=== PATIENT | female | born 1990 ===

== ENCOUNTER 2023-06-20 19:09 | Emergency (ER) | payer MEDICAID, SELFPAY ==
[2023-06-20] VITALS (9 sets, daily range): BP systolic 121–122; BP diastolic 71–76; PULSE 76–111; RESP 16–26; TEMP 36.8; O2SAT 100; BMI 31.1
--- NOTE | 2023-06-20 19:43 | XR_ITS ---
The [address] [address] Patient Name: GLENN JEROME MRN: [id number] date: 1990 Sex: F Assigned Patient Location: ER Current Patient Location: ER Accession/Order Number: [id number] Exam Date: 06/20/2023 20:30 Report Date: 06/20/2023 20:52 At the request of: DIANE MARKER Procedure: XR chest 1V EXAMINATION: XR chest 1V HISTORY: Chest pain COMPARISON: None. TECHNIQUE: Portable chest FINDINGS: The lung parenchyma is free of consolidation or infiltrate. No pneumothorax or pleural effusion. The cardiac, mediastinal and hilar contours are normal. The visualized osseous structures exhibit no gross abnormality. XR/XR chest 1V IMPRESSION: No acute cardiopulmonary abnormality. Electronically authenticated by: MARTIN PEÑA Date: 06/20/2023 20:52
--- NOTE | 2023-06-20 19:43 | ECG_ITS ---
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
--- NOTE | 2023-06-20 20:45 | ED_ITS ---
Documented by User: KRISTAN Andrea 06/20/23 21:41 HPI - Chest Pain General Chief Complaint: Chest Pain Time Seen by Provider: 06/20/23 19:53 Source: patient Mode of arrival: walk-in Limitations: no limitations History of Present Illness HPI narrative: Patient is a 33-year-old female who presents to the emergency department for the evaluation of left-sided chest pain ongoing intermittently for the last several months. She states today she felt nauseous which prompted her to come to the ER. She does have occasional shortness of breath. She has had no fevers, chills. No vomiting or diarrhea. She reports decreased oral intake today. She is not concerned for . No medications taken prior to arrival. Related Data Previous Rx's Medication Instructions Recorded hydroxyzine pamoate 25 mg capsule 25 mg PO Q6H PRN anxiety #20 caps 06/20/23 (Vistaril) ondansetron 4 mg disintegrating 4 mg PO Q6H PRN nausea and 06/20/23 tablet vomiting #12 tabs Allergies Allergy/AdvReac Type Severity Reaction Status Date / Time No Known Drug Allergies Allergy Verified 06/20/23 19:36 Review of Systems ROS Constitutional Denies: fever or chills Ears, nose, mouth, and throat Denies: throat pain or nasal congestion Cardiovascular Reports: chest pain Respiratory Reports: shortness of breath; Denies: cough Gastrointestinal Reports: nausea; Denies: vomiting Musculoskeletal Denies: back pain Integumentary/Breast Denies: rash Neurological Denies: headache Endocrine Denies: excessive urination Exam Narrative Exam Narrative: Gen.: Awake, alert, in no distress Head: Normocephalic, atraumatic ENT: Moist mucous membranes Respiratory: No respiratory distress, lungs clear bilaterally Cardio: Regular rate and rhythm Gastrointestinal: Abdomen is soft, nondistended and nontender to palpation Extremities: Moves extremities equally Psych: Normal mood and affect Neuro: No focal neuro deficit Skin: Warm, dry, intact Constitutional Vital Signs, click to edit/add: Last Vital Signs Temp 98.3 F 06/20/23 19:32 Pulse 81 06/20/23 21:51 Resp 17 06/20/23 21:51 BP 121/71 06/20/23 21:51 Pulse Ox 100 06/20/23 21:51 O2 Del Method Room Air 06/20/23 21:51 Course Vital Signs Vital signs: Vital Signs Temperature 98.3 F 06/20/23 19:32 Pulse Rate 111 H 06/20/23 19:32 Respiratory Rate 18 06/20/23 19:32 Blood Pressure 122/76 06/20/23 19:32 Pulse Oximetry 100 06/20/23 19:32 Oxygen Delivery Method Room Air 06/20/23 19:32 Temperature 98.3 F 06/20/23 19:32 Pulse Rate 81 06/20/23 21:51 Respiratory Rate 17 06/20/23 21:51 Blood Pressure 121/71 06/20/23 21:51 Pulse Oximetry 100 06/20/23 21:51 Oxygen Delivery Method Room Air 06/20/23 21:51 MDM - Chest Pain MDM Narrative Medical decision making narrative: EKG, chest x-ray performed and laboratory studies including troponin and D-dimer are within normal limits. Patient has had ongoing symptoms for several months, she has normal oxygenation and appears well-hydrated and nontoxic. She is discharged home to follow-up with her PCP for further testing. Return to the emergency department if symptoms change or worsen. Medical Records Data Attestation: I reviewed the patient's medical records. Lab Data Attestation: I reviewed the patient's lab results. Labs: Lab Results 06/20/23 Range/Units 20:20 WBC 8.6 (4.0-11.0) 10^3/uL RBC 4.33 (4.20-5.40) 10^6/uL Hgb 13.2 (12.0-16.0) g/dL Hct 40.0 (36.0-48.0) % MCV 92.4 (81.0-99.0) fL MCH 30.5 (26.7-34.0) pg MCHC 33.0 (29.9-35.2) g/dL RDW 12.3 (11.0-15.0) % Plt Count 314 (150-450) 10^3/uL MPV 8.9 L (9.5-13.5) fL Neut % (Auto) 65.7 (43.0-75.0) % Lymph % (Auto) 25.4 (20.5-60.0) % Jones % (Auto) 8.4 (1.7-12.0) % Eos % (Auto) 0.0 L (0.9-7.0) % Baso % (Auto) 0.2 (0.2-2.0) % Neut # (Auto) 5.6 (1.4-6.5) 10^3/uL Lymph # (Auto) 2.2 (1.2-3.8) 10^3/uL Jones # (Auto) 0.7 (0.3-0.8) 10^3/uL Eos # (Auto) 0.0 (0.0-0.7) 10^3/uL Baso # (Auto) 0.0 (0.0-0.1) 10^3/uL Abs Immat Gran (auto) 0.03 (0.00-0.03) 10^3/uL Imm/Tot Granulo (auto) 0.3 (0.0-0.5) % D-Dimer 0.26 (<=0.59) mg/L FEU Sodium 138 (136-145) mmol/L Potassium 3.5 (3.5-5.1) mmol/L Chloride 101 (98-107) mmol/L Carbon Dioxide 27.1 (21.0-32.0) mmol/L Anion Gap 13.4 BUN 16.0 (7.0-18.0) mg/dL Creatinine 0.88 (0.55-1.02) mg/dL Est GFR ( Amer) >60 (>=60) Est GFR (Non-Af Amer) >60 (>=60) BUN/Creatinine Ratio 18.2 Glucose 85 (74-106) mg/dL Calcium 10.0 (8.5-10.1) mg/dL Total Bilirubin 0.5 (0.2-1.0) mg/dL AST 20 (15-37) U/L ALT 26 (14-59) U/L Alkaline Phosphatase 60 (46-116) U/L Troponin I High Sens <4.0 L (4.0-51.3) pg/mL Total Protein 7.8 (6.4-8.2) g/dL Albumin 3.9 (3.4-5.0) g/dL Globulin 3.9 g/dL Albumin/Globulin Ratio 1.0 Serum HCG, Qual Negative (NEGATIVE) Imaging Data Chest x-ray: Attestation: I have reviewed the pertinent imaging results. Radiologist's impression: Procedure: XR chest 1V EXAMINATION: XR chest 1V HISTORY: Chest pain COMPARISON: None. TECHNIQUE: Portable chest FINDINGS: The lung parenchyma is free of consolidation or infiltrate. No pneumothorax or pleural effusion. The cardiac, mediastinal and hilar contours are normal. The visualized osseous structures exhibit no gross abnormality. IMPRESSION: No acute cardiopulmonary abnormality. Electronically authenticated by: MARTIN PEÑA Date: 06/20/2023 20:52 ECG Data Attestation: I personally reviewed and interpreted this ECG as follows: (Normal sinus rhythm at a rate of 80 with normal sinus arrhythmia, no acute ST elevation or ectopy. EKG reviewed by attending physician) Heart Score History: Slightly/Non-Suspicious ECG: Normal Age: <45 years Risk Factors: 1 or 2 Risk Factors Troponin: <Normal Limit Total Heart Score Recommendations & Risks:: 1 Discharge Plan Discharge Chief Complaint: Chest Pain Clinical Impression: Chest pain Patient Disposition: Home, Self-Care Time of Disposition Decision: 21:40 Condition: Good Prescriptions / Home Meds: New ondansetron 4 mg tablet,disintegrating 4 mg PO Q6H PRN (Reason: nausea and vomiting) Qty: 12 0RF hydroxyzine pamoate [Vistaril] 25 mg capsule 25 mg PO Q6H PRN (Reason: anxiety) Qty: 20 0RF Instructions: Noncardiac Chest Pain (ED) Stand Alone Forms: Portal Instructions Referrals: MILLA METZ [Primary Care Provider] - 1 week Discharge Date/Time: 06/20/23 21:55 Documented by User: Evangelina Calvo MD 06/21/23 03:31 HPI - Chest Pain General Chief Complaint: Chest Pain Time Seen by Provider: 06/20/23 19:53 Related Data Previous Rx's Medication Instructions Recorded hydroxyzine pamoate 25 mg capsule 25 mg PO Q6H PRN anxiety #20 caps 06/20/23 (Vistaril) ondansetron 4 mg disintegrating 4 mg PO Q6H PRN nausea and 06/20/23 tablet vomiting #12 tabs Allergies Allergy/AdvReac Type Severity Reaction Status Date / Time No Known Drug Allergies Allergy Verified 06/20/23 19:36 Exam Constitutional Vital Signs, click to edit/add: Last Vital Signs Temp 98.3 F 06/20/23 19:32 Pulse 81 06/20/23 21:51 Resp 17 06/20/23 21:51 BP 121/71 06/20/23 21:51 Pulse Ox 100 06/20/23 21:51 O2 Del Method Room Air 06/20/23 21:51 Course Vital Signs Vital signs: Vital Signs Temperature 98.3 F 06/20/23 19:32 Pulse Rate 111 H 06/20/23 19:32 Respiratory Rate 18 06/20/23 19:32 Blood Pressure 122/76 06/20/23 19:32 Pulse Oximetry 100 06/20/23 19:32 Oxygen Delivery Method Room Air 06/20/23 19:32 Temperature 98.3 F 06/20/23 19:32 Pulse Rate 81 06/20/23 21:51 Respiratory Rate 17 06/20/23 21:51 Blood Pressure 121/71 06/20/23 21:51 Pulse Oximetry 100 06/20/23 21:51 Oxygen Delivery Method Room Air 06/20/23 21:51 MDM - Chest Pain Lab Data Labs: Lab Results 06/20/23 Range/Units 20:20 WBC 8.6 (4.0-11.0) 10^3/uL RBC 4.33 (4.20-5.40) 10^6/uL Hgb 13.2 (12.0-16.0) g/dL Hct 40.0 (36.0-48.0) % MCV 92.4 (81.0-99.0) fL MCH 30.5 (26.7-34.0) pg MCHC 33.0 (29.9-35.2) g/dL RDW 12.3 (11.0-15.0) % Plt Count 314 (150-450) 10^3/uL MPV 8.9 L (9.5-13.5) fL Neut % (Auto) 65.7 (43.0-75.0) % Lymph % (Auto) 25.4 (20.5-60.0) % Jones % (Auto) 8.4 (1.7-12.0) % Eos % (Auto) 0.0 L (0.9-7.0) % Baso % (Auto) 0.2 (0.2-2.0) % Neut # (Auto) 5.6 (1.4-6.5) 10^3/uL Lymph # (Auto) 2.2 (1.2-3.8) 10^3/uL Jones # (Auto) 0.7 (0.3-0.8) 10^3/uL Eos # (Auto) 0.0 (0.0-0.7) 10^3/uL Baso # (Auto) 0.0 (0.0-0.1) 10^3/uL Abs Immat Gran (auto) 0.03 (0.00-0.03) 10^3/uL Imm/Tot Granulo (auto) 0.3 (0.0-0.5) % D-Dimer 0.26 (<=0.59) mg/L FEU Sodium 138 (136-145) mmol/L Potassium 3.5 (3.5-5.1) mmol/L Chloride 101 (98-107) mmol/L Carbon Dioxide 27.1 (21.0-32.0) mmol/L Anion Gap 13.4 BUN 16.0 (7.0-18.0) mg/dL Creatinine 0.88 (0.55-1.02) mg/dL Est GFR ( Amer) >60 (>=60) Est GFR (Non-Af Amer) >60 (>=60) BUN/Creatinine Ratio 18.2 Glucose 85 (74-106) mg/dL Calcium 10.0 (8.5-10.1) mg/dL Total Bilirubin 0.5 (0.2-1.0) mg/dL AST 20 (15-37) U/L ALT 26 (14-59) U/L Alkaline Phosphatase 60 (46-116) U/L Troponin I High Sens <4.0 L (4.0-51.3) pg/mL Total Protein 7.8 (6.4-8.2) g/dL Albumin 3.9 (3.4-5.0) g/dL Globulin 3.9 g/dL Albumin/Globulin Ratio 1.0 Serum HCG, Qual Negative (NEGATIVE) Heart Score Total Heart Score Recommendations & Risks:: 1 Discharge Plan Discharge Chief Complaint: Chest Pain Clinical Impression: Chest pain Patient Disposition: Home, Self-Care Time of Disposition Decision: 21:40 Condition: Good Prescriptions / Home Meds: New ondansetron 4 mg tablet,disintegrating 4 mg PO Q6H PRN (Reason: nausea and vomiting) Qty: 12 0RF hydroxyzine pamoate [Vistaril] 25 mg capsule 25 mg PO Q6H PRN (Reason: anxiety) Qty: 20 0RF Instructions: Noncardiac Chest Pain (ED) Stand Alone Forms: Portal Instructions Referrals: MILLA METZ [Primary Care Provider] - 1 week Discharge Date/Time: 06/20/23 21:55
[2023-06-20 21:00] LABS: Basophils Percent Auto 0.2 % (0.2-2.0); Hemoglobin 13.2 g/dL (12.0-16.0); Immature Granulocytes Abs Auto 0.03 10^3/uL (0.00-0.03); Immature Granulocytes Pct Auto 0.3 % (0.0-0.5); Lymphocytes Absolute Auto 2.2 10^3/uL (1.2-3.8); Lymphocytes Percent Auto 25.4 % (20.5-60.0); Mean Corpuscular Hemoglobin 30.5 pg (26.7-34.0); Mean Corpuscular Volume 92.4 fL (81.0-99.0); Mean Platelet Volume 8.9 fL (9.5-13.5); Monocytes Absolute Auto 0.7 10^3/uL (0.3-0.8); Monocytes Percent Auto 8.4 % (1.7-12.0); Neutrophils Absolute Auto 5.6 10^3/uL (1.4-6.5); Neutrophils Percent Auto 65.7 % (43.0-75.0); Platelet Count 314 10^3/uL (150-450); Red Blood Count 4.33 10^6/uL (4.20-5.40); Red Cell Distribution Width 12.3 % (11.0-15.0); White Blood Count 8.6 10^3/uL (4.0-11.0)
[2023-06-20] MEDS: ONDANSETRON PF 4 MG/2 ML VIAL IV (21:01)
[2023-06-20] MEDS: KETOROLAC TROMETHAMINE 30 MG/ML VIAL IVP (21:01)
[2023-06-20] MEDS: 0.9 % SODIUM CHLORIDE 1,000 ML 999 ML IV (21:01)
[2023-06-20 21:09] LABS: HCG Qualitative NEGATIVE (NEGATIVE)
[2023-06-20 21:15] LABS: D Dimer 0.26 mg/L FEU (<=0.59)
[2023-06-20 21:24] LABS: Alanine Aminotransferase 26 U/L (14-59); Albumin Level 3.9 g/dL (3.4-5.0); Alkaline Phosphatase 60 U/L (46-116); Anion Gap 13.4; Aspartate Amino Transferase 20 U/L (15-37); BUN Creatinine Ratio 18.2; Bilirubin Total 0.5 mg/dL (0.2-1.0); Carbon Dioxide 27.1 mmol/L (21.0-32.0); Chloride 101 mmol/L (98-107); Estimated GFR (African America >60 (>=60); Estimated GFR (Non-African Ame >60 (>=60); Globulin 3.9 g/dL; Glucose 85 mg/dL (74-106); Potassium 3.5 mmol/L (3.5-5.1); Sodium 138 mmol/L (136-145); Total Protein 7.8 g/dL (6.4-8.2)
[2023-06-20 21:33] LABS: Troponin I High Sensitivity <4.0 pg/mL (4.0-51.3)
== END 2023-06-20 21:55 | disposition home or self-care (01) ==
PROVIDERS: Physician Assistant; Emergency Provider Emergency Medicine; PCP Family Medicine
DX: R07.9 Chest pain, unspecified (principal); R06.02 Shortness of breath; R11.0 Nausea
CPT/HCPCS: 36415; 71045; 80053; 84484; 84703; 85025; 85378; 93005; 96374; 96375; 99285